=== PATIENT | female | born 1950 | race Caucasian/White ===

== ENCOUNTER 2017-07-21 11:30 | Emergency (ER) | payer MEDICAID ==
[2017-07-21 12:05] VITALS: BMI 23.9
--- NOTE | 2017-07-21 12:35 | C.PDOC ---
History Of Present Illness 67 year old female presents to the ED for evaluation of dizziness and head injury. Patient reports a history of vertigo, but feels like symptoms have been becoming more frequent for the past month. Patient was in the bathroom today when she bent over to pickup her pants, felt dizzy, and fell over and hit her head. Patient denies loss of consciousness. She now complains of headache and dizziness. Patient also states she injured her left middle finger and complains of generalized body pain. Patient has a history of herniated disc in her cervical spine and has chronic neck pain. Patient takes betahistina dihydrochlorida 8mg for dizziness in [facility]. She denies vision change, nausea, vomiting, numbness/weakness. Time Seen by Provider: 07/21/17 12:17 Chief Complaint (Nursing): Dizziness/Lightheaded History Per: Patient History/Exam Limitations: no limitations Onset/Duration Of Symptoms: Days Current Symptoms Are (Timing): Still Present Quality: "Pain" Associated Symptoms: denies: Nausea, Vomiting, Extremity Weakness Additional History Per: Patient Past Medical History Reviewed: Historical Data, Nursing Documentation, Vital Signs Vital Signs: Last Vital Signs Temp 98.0 F 07/21/17 14:53 Pulse 67 07/21/17 14:53 Resp 16 07/21/17 14:53 BP 130/79 07/21/17 14:53 Pulse Ox 95 07/21/17 15:43 - Medical History PMH: HTN, Hypercholesterolemia Surgical History: Cholecystectomy Family History: States: Unknown Family Hx - Social History Hx Alcohol Use: No Hx Substance Use: No - Immunization History Hx Tetanus Toxoid Vaccination: No Hx Influenza Vaccination: No Hx Pneumococcal Vaccination: No Review Of Systems Gastrointestinal: Negative for: Nausea, Vomiting Musculoskeletal: Positive for: Neck Pain, Other (left middle finger pain ) Neurological: Positive for: Headache, Dizziness. Negative for: Weakness, Numbness, Other (loss of consciousness ) Physical Exam - Physical Exam Appears: Non-toxic, No Acute Distress Skin: Normal Color, Warm, Dry Head: Atraumatic, Normacephalic, No Other (hematoma ) Eye(s): bilateral: PERRL, EOMI, Other (cataracts ) Ear(s): Bilateral: Normal Nose: Normal, No Epistaxis, No Deformity, No Septal Hematoma Oral Mucosa: Moist Neck: Normal ROM, No Midline Cervical Tenderness, Supple Chest: Symmetrical, No Deformity, No Tenderness Cardiovascular: Rhythm Regular, No Murmur Respiratory: Normal Breath Sounds, No Rales, No Rhonchi, No Wheezing Back: Normal Inspection, No Vertebral Tenderness, No Paraspinal Tenderness Extremity: Normal ROM, Tenderness (mild, to left 3rd digit PIP), Capillary Refill (less than 2 seconds ), No Deformity, No Swelling Neurological/Psych: Oriented x3, Normal Speech, No Cerebellar Signs, Normal Motor, Normal Sensation Gait: Steady ED Course And Treatment ECG: Interpreted By Me, Viewed By Me ECG Rhythm: Sinus Bradycardia ECG Interpretation: No Acute Changes Rate From EC O2 Sat by Pulse Oximetry: 95 (on RA) Pulse Ox Interpretation: Normal - Other Rad left hand XR X-Ray: Interpreted by Me, Viewed By Me, Read By Radiologist Interpretation: PROCEDURE: Left middle finger radiographs. HISTORY: Pain, s.p injury fall. COMPARISON: None. TECHNIQUE: AP radiograph of the left hand , as well as spot oblique and lateral images of left middle finger were obtained. FINDINGS: LEFT MIDDLE FINGER: Left middle finger normal, without acute displaced fracture of focal lesion. Remainder of the left hand (as seen on the AP view) is grossly unremarkable. JOINTS: Normal. SOFT TISSUES: Normal. OTHER FINDINGS: None. IMPRESSION: No acute displaced fracture or dislocation. cervical spine XR X-Ray: Interpreted by Me, Viewed By Me, Read By Radiologist Interpretation: PROCEDURE: Cervical Spine Radiographs. HISTORY: Pain. No history of recent/ related trauma provided. COMPARISON: None. FINDINGS: BONES: Alignment maintained. No fracture. Dens Intact. DISC SPACES: Multilevel degenerative changes most notable C4-5 and C5-6, C6-7. SOFT TISSUES : Normal. No prevertebral soft tissue swelling. OTHER FINDINGS: None. IMPRESSION: Cervical spondylotic change, no acute findings. - CT Scan/US CT Head Other Rad Studies (CT/US): Interpreted By Me, Read By Radiologist, Radiology Report Reviewed CT/US Interpretation: PROCEDURE: CT HEAD WITHOUT CONTRAST. HISTORY: Dizziness and injury. COMPARISON: None available. TECHNIQUE: Axial computed tomography images were obtained through the head/brain without intravenous contrast. Radiation dose: Total exam DLP = 748.06 mGy-cm. This CT exam was performed using one or more of the following dose reduction techniques: Automated exposure control, adjustment of the mA and/or kV according to patient size, and/or use of iterative reconstruction technique. FINDINGS: HEMORRHAGE: No intracranial hemorrhage. BRAIN: No mass effect or edema. No atrophy or chronic microvascular ischemic changes. VENTRICLES: Unremarkable. No hydrocephalus. CALVARIUM: Unremarkable. PARANASAL SINUSES: Unremarkable as visualized. No significant inflammatory changes. MASTOID AIR CELLS: Unremarkable as visualized. No inflammatory changes. OTHER FINDINGS: None. IMPRESSION: Normal CT of the Head. No intracranial hemorrhage. Medical Decision Making Medical Decision Making: Impression: 67 y/o female with dizziness and head injury Plan: * CT Head * Cervical Spine XR * Left Hand XR * Antivert PO * Tylenol PO Progress: Antivert PO and Tylenol PO administered. CT Head, Cervical Spine AP/LAT, Left hand XR ordered and reviewed. radiologist also read imaging and provided patient with reports. 1410 On re-evaluation, patient is laying comfortably on stretcher and reports feeling better. She states pain has improved and is no longer feeling dizzy. She has no neuro deficits. She is alert and oriented and stable for discharge Disposition Counseled Patient/Family Regarding: Diagnosis, Need For Followup, Rx Given - Disposition Referrals: Llai Natarajan MD [Medical Doctor] - Disposition: HOME/ ROUTINE Disposition Time: 14:11 Condition: STABLE Additional Instructions: Rx sent to [facility] pharmacy Continue with your usual medications Take Meclizine 1-2 tabs every 8 hours as needed for dizziness Follow up with your primary medical doctor or clinic in 2-5 days for further evaluation Return to the emergency department at any time if symptoms persist or worsen. Rx enviado a la farmacia [facility] Contina con tus medicamentos habituales [place] Meclizine 1-2 tabletas cada 8 horas segn sea necesario para el mareo Thai un seguimiento con nguyen mdico primario o clnica en 2-5 riddle para kat evaluacin adicional Regrese al departamento de emergencia en cualquier momento si los sntomas persisten o empeoran. Prescriptions: Meclizine [Meclizine*] 25 mg PO Q6 #30 tab Instructions: Vertigo (a Type of Dizziness) (DC), Contusion (DC) Forms: TXCOM (Finnish) Print Language: MACEDONIAN - POA Present On Arrival: Falls Or Trauma - Clinical Impression Clinical Impression: Vertigo, Contusion, finger, Accidental fall from commode or toilet - PA / WOVEN LABEL DESIGNER / Resident Statement MD/DO has reviewed & agrees with the documentation as recorded. - Scribe Statement The provider has reviewed the documentation as recorded by the Scribe (Maddie Mejia) All medical record entries made by the Scribe were at my direction and personally dictated by me. I have reviewed the chart and agree that the record accurately reflects my personal performance of the history, physical exam, medical decision making, and the department course for this patient. I have also personally directed, reviewed, and agree with the discharge instructions and disposition.
--- NOTE | 2017-07-21 13:36 | RAD ---
PROCEDURE: Cervical Spine Radiographs. HISTORY: Pain. No history of recent/ related trauma provided COMPARISON: None. FINDINGS: BONES: Alignment maintained. No fracture. Dens Intact. DISC SPACES: Multilevel degenerative changes most notable C4-5 and C5-6, C6-7. SOFT TISSUES: Normal. No prevertebral soft tissue swelling. OTHER FINDINGS: None. IMPRESSION: Cervical spondylotic change, no acute findings.
--- NOTE | 2017-07-21 13:38 | RAD ---
PROCEDURE: Left middle finger radiographs. HISTORY: Pain, s.p injury fall COMPARISON: None. TECHNIQUE: AP radiograph of the left hand, as well as spot oblique and lateral images of left middle finger were obtained. FINDINGS: LEFT MIDDLE FINGER: Left middle finger normal, without acute displaced fracture of focal lesion. Remainder of the left hand (as seen on the AP view) is grossly unremarkable. JOINTS: Normal. SOFT TISSUES: Normal. OTHER FINDINGS: None. IMPRESSION: No acute displaced fracture or dislocation.
--- NOTE | 2017-07-21 13:39 | CT ---
PROCEDURE: CT HEAD WITHOUT CONTRAST. HISTORY: Dizziness and injury COMPARISON: None available. TECHNIQUE: Axial computed tomography images were obtained through the head/brain without intravenous contrast. Radiation dose: Total exam DLP = 748.06 mGy-cm. This CT exam was performed using one or more of the following dose reduction techniques: Automated exposure control, adjustment of the mA and/or kV according to patient size, and/or use of iterative reconstruction technique. FINDINGS: HEMORRHAGE: No intracranial hemorrhage. BRAIN: No mass effect or edema. No atrophy or chronic microvascular ischemic changes. VENTRICLES: Unremarkable. No hydrocephalus. CALVARIUM: Unremarkable. PARANASAL SINUSES: Unremarkable as visualized. No significant inflammatory changes. MASTOID AIR CELLS: Unremarkable as visualized. No inflammatory changes. OTHER FINDINGS: None. IMPRESSION: Normal CT of the Head. No intracranial hemorrhage.
[2017-07-21 14:56] VITALS: BP 130/79; PULSE 67; RESP 16; TEMP 98
[2017-07-21 15:11] VITALS: O2SAT 95
--- NOTE | 2017-07-23 13:24 | CARD ---
APPROVED REPORT EKG Measurement Heart [id number] [id number] <Conclusion> Sinus bradycardia Otherwise normal ECG
== END 2017-07-21 14:55 | disposition home or self-care (01) ==
LOC: C.ER 11:30
DX: R42 Dizziness and giddiness (principal); S60.032A Contusion of left middle finger without damage to nail, initial encounter; W18.11XA Fall from or off toilet without subsequent striking against object, initial encounter